=== PATIENT | male | born 1980 | race Caucasian/White ===

== ENCOUNTER 2017-05-19 14:19 | Emergency (ER) | payer OTHER ==
[2017-05-19 14:52] VITALS: BP 140/95
--- NOTE | 2017-05-19 15:39 | EDM.PDOC ---
ED HPI GENERAL MEDICAL PROBLEM - General Chief Complaint: ENT Problem Stated Complaint: TOOTH PAIN Time Seen by Provider: 05/19/17 15:17 Source of Information: Reports: Patient History Limitations: Reports: No Limitations - History of Present Illness INITIAL COMMENTS - FREE TEXT/NARRATIVE: Patient is a 37-year-old male presents ED complaining of pain to the #17 tooth. Patient states he had a temporary filling placed to the affected tooth approximately 3 months ago. Approximate one week ago part of the filling fell off causing worsening pain. Since onset the pain has gradually worsened to the point where he cannot stand it. Worsens with drinking, chewing, exposure air. Pain is intermittent but severe with onset. He has not noticed any swelling to the affected area. He is new here and does not have a local dentist. 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 [No Known Home Meds] 05/19/17 [History] Past Medical History HEENT History: Reports: Other (See Below) Other HEENT History: dental issues Social & Family History - Tobacco Use Smoking Status *Q: Current Every Day Smoker Years of Tobacco use: 20 Packs/Tins Daily: 0.5 - Caffeine Use Caffeine Use: Reports: Coffee, Energy Drinks - Recreational Drug Use Recreational Drug Use: No ED ROS ENT - Review of Systems Review Of Systems: See Below Constitutional: Reports: Decreased Appetite. Denies: Fever, Chills HEENT: Reports: Dental Pain. Denies: Ear Pain Respiratory: Reports: No Symptoms Musculoskeletal: Denies: Neck Pain Neurological: Denies: Headache ED EXAM, ENT - Physical Exam Exam: See Below Exam Limited By: No Limitations General Appearance: Alert, WD/WN, No Apparent Distress Ears: Hearing Grossly Normal Nose: Normal Inspection Mouth/Throat: Normal Inspection, Other (Generalized poor dental hygiene with multiple fillings present. The #17 tooth has a temporary filling in place with lateral aspect broken off. No swelling noted to the gumline. No trismus. No purulent drainage.) Head: Atraumatic, Normocephalic Neck: Normal Inspection, Supple, Non-Tender. No: Lymphadenopathy (L), Lymphadenopathy (R) Respiratory/Chest: No Respiratory Distress, Lungs Clear, Normal Breath Sounds Cardiovascular: Normal Peripheral Pulses, Regular Rate, Rhythm Neurological: Alert, Oriented, CN II-XII Intact, No Motor/Sensory Deficits Psychiatric: Normal Affect, Normal Mood Skin: Warm, Dry, Intact, Normal Color, No Rash Course - Vital Signs Last Recorded V/S: Last Vital Signs Temp 98.3 F 05/19/17 14:51 Pulse 94 05/19/17 14:51 Resp 20 05/19/17 14:51 BP 140/95 H 05/19/17 14:51 Pulse Ox 98 05/19/17 14:51 - Re-Assessments/Exams Free Text/Narrative Re-Assessment/Exam: Inferior alveolar dental block was performed with bupuvicaine with immediate relief. Suspect dental infection is present although abscess is not visualized. Will start the patient on clindamycin. In addition for pain will discharge patient home with a prescription for tramadol. Departure - Departure Time of Disposition: 15:37 Disposition: Home, Self-Care 01 Condition: Good Clinical Impression: Dental caries, Dental caries extending into dentin Fracture of tooth Qualifiers: Encounter type: initial encounter Fracture type: closed Qualified Code(s): S02.5XXA - Fracture of tooth (traumatic), initial encounter for closed fracture - Discharge Information Referrals: PCP,None [Primary Care Provider] - Additional Instructions: Take the clindamycin and tramadol as prescribed. Continue taking ibuprofen 600 mg every 6 hours and Tylenol 650 mg every 6 hours and alternate fashion. Take the tramadol in addition to Tylenol and ibuprofen if pain not relieved with the above therapies. Refrain from chewing food on the affected side. Call and make an appointment on Saturday to see a dentist as soon as possible for definitive treatment. Take [id number] probiotic while taking the clindamycin. Return to ED for any new or worsening symptoms.
== END 2017-05-19 15:55 | disposition home or self-care (01) ==
LOC: JD.ED 14:19
DX: K02.9 Dental caries, unspecified (principal); K03.81 Cracked tooth; F17.210 Nicotine dependence, cigarettes, uncomplicated; Z88.1 Allergy status to other antibiotic agents; Z88.0 Allergy status to penicillin
CPT/HCPCS: 64400; 99283-25

== ENCOUNTER 2017-05-30 03:54 | Emergency (ER) | payer OTHER ==
[2017-05-30 03:59] VITALS: BP 129/93
--- NOTE | 2017-05-30 05:04 | EDM.PDOC ---
ED HPI GENERAL MEDICAL PROBLEM - General Chief Complaint: Respiratory Problem Stated Complaint: cough,chest congestion Time Seen by Provider: 05/30/17 04:11 Source of Information: Reports: Patient, RN Notes Reviewed History Limitations: Reports: No Limitations - History of Present Illness INITIAL COMMENTS - FREE TEXT/NARRATIVE: The patient states that he has had cold sweats and a cough productive of blood flecks for about 3 weeks. He has not had a fever, but he does report dyspnea, even at rest. He also reports right-sided chest pain whenever he coughs. The patient also states that his nostrils have been painful for the past 2-3 days. The patient states that he has been on a couple of rounds of antibiotics, most recently clindamycin started 05/19/2017 for a dental infection. Here in the ED, the patient is afebrile, saturating 97% on room air. The patient does not have a PCP. Chest Pain Score (Numeric/FACES): 8 - Related Data Allergies Allergy/AdvReac Type Severity Reaction Status Date / Time ciprofloxacin [From Cipro] Allergy Hives Verified 05/30/17 03:59 Penicillins Allergy Hives Verified 05/30/17 03:59 Home Meds: Home Meds Fluticasone/Salmeterol [Advair Diskus 250-50] 2 puff INH DAILY 05/30/17 [History ] valACYclovir [Valtrex] 2,000 mg PO Q12H #4 tablet 05/30/17 [Rx] Past Medical History HEENT History: Reports: Other (See Below) Other HEENT History: dental issues Respiratory History: Reports: Asthma Endocrine/Metabolic History: Reports: Obesity/BMI 30+ - Infectious Disease History Infectious Disease History: Reports: MRSA - Past Surgical History HEENT Surgical History: Reports: Oral Surgery ([facility] teeth extraction) Social & Family History - Tobacco Use Smoking Status *Q: Former Smoker Years of Tobacco use: 22 Packs/Tins Daily: 1 Month Tobacco Last Used: Quit April 2017 - Caffeine Use Caffeine Use: Reports: Coffee, Energy Drinks - Alcohol Use Alcohol Use History: Yes Alcohol Use Frequency: Socially - Recreational Drug Use Recreational Drug Use: No - Living Situation & Occupation Living situation: Reports: (), Other (employee housing) 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) ED ROS GENERAL - Review of Systems Review Of Systems: See Below Constitutional: Reports: No Symptoms HEENT: Reports: No Symptoms Respiratory: Reports: No Symptoms Cardiovascular: Reports: No Symptoms Endocrine: Reports: No Symptoms GI/Abdominal: Reports: No Symptoms : Reports: No Symptoms Musculoskeletal: Reports: No Symptoms Skin: Reports: No Symptoms Neurological: Reports: No Symptoms Psychiatric: Reports: No Symptoms Hematologic/Lymphatic: Reports: No Symptoms Immunologic: Reports: No Symptoms ED EXAM, GENERAL - Physical Exam Exam: See Below Exam Limited By: No Limitations General Appearance: Alert, WD/WN, No Apparent Distress Eye Exam: Bilateral Eye: Normal Inspection Ears: Normal External Exam, Normal Canal, Hearing Grossly Normal, Normal TMs Nose: No Blood, Other (Nasal mucosal swelling noted on the left. Herpetic lesion noted on the right nare.) Throat/Mouth: Normal Inspection, Normal Lips, Normal Teeth, Normal Gums, Normal Oropharynx, Normal Voice, No Airway Compromise Head: Atraumatic, Normocephalic Neck: Normal Inspection, Supple, Non-Tender, Full Range of Motion. No: Lymphadenopathy (L), Lymphadenopathy (R) Respiratory/Chest: No Respiratory Distress, Lungs Clear, Normal Breath Sounds, No Accessory Muscle Use. No: Crackles, Rhonchi, Wheezing Cardiovascular: Normal Peripheral Pulses, Regular Rate, Rhythm, No Gallop, No JVD, No Murmur, No Rub Peripheral Pulses: 4+: Radial (L), Radial (R) GI/Abdominal: Normal Bowel Sounds, Soft, Non-Tender, No Organomegaly, No Distention, No Abnormal Bruit, No Mass, Other (Obese) (Male) Exam: Deferred Rectal (Males) Exam: Deferred Back Exam: Normal Inspection, Full Range of Motion, NT Extremities: Normal Inspection, Normal Range of Motion, No Pedal Edema, Normal Capillary Refill Neurological: Alert, Oriented, Normal Cognition, No Motor/Sensory Deficits Psychiatric: Normal Affect Skin Exam: Warm, Dry, Intact, Normal Color, No Rash Lymphatic: No Adenopathy Course - Vital Signs Last Recorded V/S: Last Vital Signs Temp 36.0 C 05/30/17 03:56 Pulse 96 05/30/17 03:56 Resp 18 05/30/17 03:56 BP 129/93 H 05/30/17 03:56 Pulse Ox 97 05/30/17 03:56 - Orders/Labs/Meds Orders: Active Orders 24 hr Category Date Time Status Chest 2V [CR] Stat Exams 05/30/17 04:31 Taken Labs: Laboratory Tests 05/30/17 05/30/17 05/30/17 Range/Units 04:45 04:45 04:45 WBC 9.28 H (4.23-9.07) K/mm3 RBC 5.03 (4.63-6.08) M/mm3 Hgb 14.1 (13.7-17.5) gm/L Hct 40.8 (40.1-51.0) % MCV 81.1 (79.0-92.2) fl MCH 28.0 (25.7-32.2) pg MCHC 34.6 (32.2-35.5) g/dl RDW Std Deviation 39.3 (35.1-43.9) fL Plt Count 289 (163-337) K/mm3 MPV 8.8 L (9.4-12.3) fl Neutrophils % (Manual) 63 H (40-60) % Band Neutrophils % 0 (0-10) % Lymphocytes % (Manual) 20 (20-40) % Atypical Lymphs % 0 % Monocytes % (Manual) 13 H (2-10) % Eosinophils % (Manual) 4 (0.8-7.0) % Basophils % (Manual) 0 L (0.2-1.2) Platelet Estimate Adequate RBC Morph Comment Normal PT 10.8 (8.0-13.0) SECONDS INR 0.99 APTT 30 (22-36) SECONDS D-Dimer, Quantitative 0.62 H (0.19-0.59) mg/L Sodium 137 (136-145) mEq/L Potassium 2.9 L (3.5-5.1) mEq/L Chloride 102 (98-107) mEq/L Carbon Dioxide 29 (21-32) mEq/L Anion Gap 8.9 (5-15) BUN 14 (7-18) mg/dL Creatinine 1.2 (0.7-1.3) mg/dL Est Cr Clr Drug Dosing TNP Estimated GFR (MDRD) > 60 (>60) mL/min BUN/Creatinine Ratio 11.7 L (14-18) Glucose 116 H (74-106) mg/dL Calcium 8.2 L (8.5-10.1) mg/dL Total Bilirubin 0.7 (0.2-1.0) mg/dL AST 27 (15-37) U/L ALT 32 (16-63) U/L Alkaline Phosphatase 61 (46-116) U/L Total Protein 6.9 (6.4-8.2) g/dl Albumin 3.4 (3.4-5.0) g/dl Globulin 3.5 gm/dL Albumin/Globulin Ratio 1.0 (1-2) Meds: Medications Discontinued Medications Generic Name Dose Route Start Last Admin Trade Name Ar PRN Reason Stop Dose Admin Potassium Chloride 40 meq 05/30/17 05:39 05/30/17 05:47 Klor-Con M20 PO 05/30/17 05:40 40 meq ONETIME ONE Administration - Re-Assessments/Exams Free Text/Narrative Re-Assessment/Exam: 05/30/17 05:22 Two-view chest radiograph appears to be grossly normal. Cardiac silhouette is within normal limits. No pulmonary vascular congestion. No pleural effusions. No focal infiltrate. No pneumothorax. Formal read per the Radiologist pending. 05/30/17 05:38 The patient is found to be hypokalemic at 2.9. This is an incidental finding, unrelated to his symptoms. It may be due to his Advair, although other causes are possible. I will treat with oral potassium, but this will need to be followed. 05/30/17 05:49 Test results discussed with the patient. Today's workup is grossly unremarkable , with exception of a potassium of 2.9. The patient will receive 40 mEq oral potassium chloride prior to discharge home. His symptoms appear to be due to a viral URI with cough. The patient initially told me that his right nostril has been painful for about 3 weeks, but clarified that it has only been 2-3 days. It appears to be herpetic. I will prescribe Valtrex, noting that it may be too late to help this particular outbreak. I would like the patient to follow-up with Dr. Joshi in the clinic this coming 05/31/2017, to recheck his potassium, and if abnormal, to order a workup to discern why. 05/30/17 05:50 Departure - Departure Time of Disposition: 05:50 Disposition: Home, Self-Care 01 Condition: Good Clinical Impression: Viral URI with cough, Herpes simplex - Discharge Information Referrals: PCP,None [Primary Care Provider] - Lakesha Joshi [Physician] - Forms: ED Department Discharge Additional Instructions: You were seen in the emergency room for cold sweats and a cough for the past 3 weeks, plus right nostril pain for the past few days. Workup in the ER included blood work and a chest x-ray. Your workup was remarkable for finding that your potassium was low at 2.9. You were given oral potassium replacement. There are a number of potential causes for low potassium. Follow-up with Dr. Joshi in the clinic this coming 05/31/2017 to have your potassium rechecked, and if still low, for a workup to determine why. You appear to have herpes on your nose. Take the 2 doses of Valtrex as prescribed. If any other problems, please do not hesitate to return to the ER. - My Orders Last 24 Hours: My Active Orders 05/30/17 04:31 Chest 2V [CR] Stat - Assessment/Plan Last 24 Hours: My Active Orders 05/30/17 04:31 Chest 2V [CR] Stat
[2017-05-30] MEDS ORDERED: Potassium Chloride 20 MEQ Tab.ER PO ONE (05:39)
--- NOTE | 2017-06-03 08:39 | CR ---
Chest: Two views of the chest were obtained. Comparison: No previous study. Heart size and mediastinum are within normal limits. Lungs are clear. Bony structures are within normal limits. Impression: 1. Nothing acute is identified on two-view chest x-ray. Diagnostic code #1
== END 2017-05-30 06:05 | disposition home or self-care (01) ==
LOC: JD.ED 03:54
DX: J06.9 Acute upper respiratory infection, unspecified (principal); B00.9 Herpesviral infection, unspecified; J45.909 Unspecified asthma, uncomplicated; E66.9 Obesity, unspecified; Z88.1 Allergy status to other antibiotic agents; Z88.0 Allergy status to penicillin; Z79.899 Other long term (current) drug therapy; Z87.891 Personal history of nicotine dependence
CPT/HCPCS: 36415; 71020; 80053; 85025; 85379; 85610; 85730; 99283; A9270

== ENCOUNTER 2017-06-30 19:23 | Emergency (ER) | payer OTHER ==
[2017-06-30 19:33] VITALS: BP 148/95
[2017-06-30] MEDS ORDERED: Acetaminophen/HYDROcodone 325-5 MG Tab PO ONE (20:04)
[2017-06-30] MEDS ORDERED: Ketorolac 60 MG/2 ML SDV IM ONE (20:04)
[2017-06-30] MEDS ORDERED: predniSONE 20 MG Tab PO ONE (20:04)
--- NOTE | 2017-06-30 20:20 | EDM.PDOC ---
ED HPI GENERAL MEDICAL PROBLEM - General Chief Complaint: Back Pain or Injury Stated Complaint: back pain Time Seen by Provider: 06/30/17 19:38 Source of Information: Reports: Patient, RN Notes Reviewed - History of Present Illness INITIAL COMMENTS - FREE TEXT/NARRATIVE: 37-year-old male comes in with low back pain. His back about 6 hours ago attempting to have heavy Tajik type cover. Fairly sudden onset of pain right low back. He does have some radiation of pain down the right leg. The pain is worse with motion. 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 He has been taking some Tylenol. He does not feel that there is any way he will be able to work tomorrow with his shift due to start in about 8 hours. No other pain or injury. Lower Back Pain Score (Numeric/FACES): 10 - Related Data Allergies Allergy/AdvReac Type Severity Reaction Status Date / Time ciprofloxacin [From Cipro] Allergy Hives Verified 06/30/17 19:32 Penicillins Allergy Hives Verified 06/30/17 19:32 Home Meds: Home Meds Albuterol [IJD: Ventolin HFA] 1 puff INH QID PRN 06/30/17 [History] Hydrocodone/Acetaminophen [Devers 5-325] 1 tab PO Q6H PRN #14 tablet 06/30/17 [Rx ] Prednisone [IJD: predniSONE] 40 mg PO WITHBREAKFAST #5 tab 06/30/17 [Rx] Past Medical History HEENT History: Reports: Other (See Below) Other HEENT History: dental issues Respiratory History: Reports: Asthma Endocrine/Metabolic History: Reports: Obesity/BMI 30+ - Infectious Disease History Infectious Disease History: Reports: MRSA - Past Surgical History HEENT Surgical History: Reports: Oral Surgery Social & Family History - Tobacco Use Smoking Status *Q: Unknown Ever Smoked Years of Tobacco use: 22 Packs/Tins Daily: 1 Used Tobacco, but Quit: Yes Month Tobacco Last Used: Quit April 2017 - Caffeine Use Caffeine Use: Reports: Coffee, Energy Drinks - Recreational Drug Use Recreational Drug Use: No - Living Situation & Occupation Living situation: Reports: (), Other (employee housing) 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) ED ROS GENERAL - Review of Systems Review Of Systems: See Below Constitutional: Reports: No Symptoms Respiratory: Denies: Shortness of Breath Cardiovascular: Denies: Chest Pain GI/Abdominal: Denies: Abdominal Pain, Nausea, Vomiting : Reports: No Symptoms Musculoskeletal: Reports: Back Pain (Right low back), Leg Pain (Right leg), Other (Pain is worse with motion) Neurological: Denies: Numbness, Tingling, Weakness ED EXAM,LOWER BACK PAIN/INJURY - Physical Exam Exam: See Below Exam Limited By: Uncooperative General Appearance: Moderate Distress Eye Exam: Bilateral Eye: PERRL Head: Atraumatic Respiratory/Chest: No Respiratory Distress, Lungs Clear Cardiovascular: Regular Rate, Rhythm GI/Abdominal: Soft, Non-Tender Back Exam: Paraspinal Tenderness, Other (No swelling, warmth or erythema). No: Vertebral Tenderness Neurological: Normal Mood/Affect, No Motor/Sensory Deficits, Oriented x 3, Straight Leg Raise (R) Skin Exam: Warm, Dry, Normal Color Course - Vital Signs Last Recorded V/S: Last Vital Signs Temp 98.2 F 06/30/17 19:29 Pulse 86 06/30/17 19:29 Resp 18 06/30/17 19:29 BP 148/95 H 06/30/17 19:29 Pulse Ox 98 06/30/17 19:29 - Orders/Labs/Meds Meds: Medications Discontinued Medications Generic Name Dose Route Start Last Admin Trade Name Freq PRN Reason Stop Dose Admin Hydrocodone Bitart/Acetaminophen 1 tab 06/30/17 20:04 06/30/17 20:13 Devers 325-5 Mg PO 06/30/17 20:05 1 tab ONETIME ONE Administration Ketorolac Tromethamine 60 mg 06/30/17 20:04 06/30/17 20:12 Toradol IM 06/30/17 20:05 60 mg ONETIME ONE Administration Prednisone 40 mg 06/30/17 20:04 06/30/17 20:12 Prednisone PO 06/30/17 20:05 40 mg ONETIME ONE Administration Departure - Departure Time of Disposition: 20:18 Disposition: Home, Self-Care 01 Condition: Fair Clinical Impression: Back pain of lumbar region with sciatica - Discharge Information Prescriptions: Hydrocodone/Acetaminophen [Devers 5-325] 1 tab PO Q6H PRN #14 tablet PRN Reason: Pain Prednisone [IJD: predniSONE] 40 mg PO WITHBREAKFAST #5 tab Instructions: Back Pain, Adult, Sciatica Referrals: PCP,None [Primary Care Provider] - Forms: ED Department Discharge, ED Return to Work/School Form Additional Instructions: Rest back, no heavy lifting, prednisone 40 mg daily for the next 5 days, alternate ice and heat low back as needed. Advil or ibuprofen 2-3 times daily with food, Tylenol 3-4 times daily in addition for extra pain relief or hydrocodone if needed for severe pain. Tylenol and hydrocodone at the same time , drive or work when taking hydrocodone, follow-up [facility] if not much better within 3-4 days. Return to ED as needed.
== END 2017-06-30 20:30 | disposition home or self-care (01) ==
LOC: JD.ED 19:23
DX: M54.41 Lumbago with sciatica, right side (principal); Z88.0 Allergy status to penicillin; Z88.1 Allergy status to other antibiotic agents; J45.909 Unspecified asthma, uncomplicated; E66.9 Obesity, unspecified; Z87.891 Personal history of nicotine dependence
CPT/HCPCS: 96372; 99283; A9270; J1885